=== PATIENT | male | born 1940 | race Caucasian/White ===

== ENCOUNTER 2025-04-16 18:27 | Inpatient (IN) | payer MEDICARE, OTHER ==
[~2025-04-16] VITALS: Ht 177.8 cm; Wt 74.2 kg
[~2025-04-16 18:27] MED LIST: EVOL140P3 SQ; IVER3TAB2 PO
[2025-04-16 18:42] VITALS: O2SAT 98
[2025-04-16] MEDS: IPRATROPIUM NEB FS 0.5 MG/2.5 ML AMPUL.NEB NEB ONE (18:43)
[2025-04-16] MEDS: ALBUTEROL FS 2.5 MG/3 ML VIAL.NEB NEB ONE (18:43)
[2025-04-16] MEDS ORDERED: ALBUTEROL FS 2.5 MG/3 ML VIAL.NEB ONE (18:44)
[2025-04-16] MEDS ORDERED: IPRATROPIUM NEB FS 0.5 MG/2.5 ML AMPUL.NEB ONE (18:44)
[2025-04-16 18:56] LABS: PLATELET COUNT (AUTO) 165 K/uL (150-450); RED BLOOD CELL COUNT(AUTO) 4.16 MIL/uL (4.5-6.0); RED CELL DISTRIBUTION WIDTH 14.9 % (11.5-15.0); WHITE BLOOD COUNT (AUTO) 8.6 K/uL (4.3-11.0)
[2025-04-16] MEDS: IV NS 0.9% 500 ML BAG IV ONE (18:57)
[2025-04-16] MEDS: CEFEPIME 1 GM in IV D5W 50 ML IV ONE (18:58)
[2025-04-16] MEDS ORDERED: ACET325T53 PO ×2 (19:04)
[2025-04-16] MEDS ORDERED: ASCO500T20 PO (19:04)
[2025-04-16] MEDS ORDERED: AZEL137S7 BNOSTRILS (19:04)
[2025-04-16] MEDS ORDERED: MONT10TA22 PO (19:04)
[2025-04-16] MEDS ORDERED: DIGO-30 PO (19:04)
[2025-04-16] MEDS ORDERED: DAPA10TA PO (19:04)
[2025-04-16] MEDS ORDERED: MAGN400O6 PO (19:04)
[2025-04-16] MEDS ORDERED: ZINC50TA69 PO (19:04)
[2025-04-16] MEDS ORDERED: DABI110C PO (19:04)
[2025-04-16] MEDS ORDERED: ACET-73 PO (19:04)
[2025-04-16] MEDS ORDERED: SILO8CAP6 PO (19:04)
[2025-04-16] MEDS ORDERED: LIDO30AD10 TP (19:04)
[2025-04-16] MEDS ORDERED: GLYC2TAB21 PO (19:04)
[2025-04-16] MEDS ORDERED: LINA145C PO (19:04)
[2025-04-16] MEDS ORDERED: BREZTRI IH (19:04)
[2025-04-16] MEDS ORDERED: MULT-213 PO (19:04)
[2025-04-16] MEDS ORDERED: ALBU18HF2 IH (19:04)
[2025-04-16] MEDS ORDERED: ATOR10TA GT (19:04)
[2025-04-16] MEDS ORDERED: DIVA125C2 PO (19:04)
[2025-04-16] MEDS ORDERED: FEBU40TA3 PO (19:04)
[2025-04-16] MEDS ORDERED: RISP0.5T5 PO (19:04)
[2025-04-16] MEDS ORDERED: NA P133E RC (19:04)
[2025-04-16] MEDS ORDERED: AMIN30LI66 PO (19:04)
[2025-04-16] MEDS ORDERED: RISP1TAB7 PO (19:04)
[2025-04-16 19:12] LABS: INR 1.01 (0.91-1.10)
[2025-04-16 19:17] LABS: LACTIC ACID 1.3 mmol/L (0.4-2.0)
[2025-04-16 19:22] LABS: CALCIUM, SERUM 8.8 mg/dL (8.5-10.1); CREATININE 1.0 mg/dL (0.6-1.3); SODIUM SERUM 141 mmol/L (136-145); UREA NITROGEN, BLOOD 23 mg/dL (7-18)
[2025-04-16 19:26] LABS: ASPARTATE AMINOTRANSFERASE 12 U/L (15-37); TOTAL PROTEIN, SERUM 7.6 g/dL (6.4-8.2)
[2025-04-16] MEDS: Magnesium 1GM/D5W 100ML PREMIX 200 ML IV ONE (19:41)
[2025-04-16 19:42] VITALS: O2SAT 100
[2025-04-16] MEDS: VANCOMYCIN 1 GM in IV D5W 250 ML IV ONE (20:00)
[2025-04-16] MEDS ORDERED: Magnesium 1GM/D5W 100ML PREMIX 100 ML IV ONE (20:02)
[2025-04-16 22:50] VITALS: BP 105/66; TEMP 97.8; O2SAT 97
[2025-04-16] MEDS ORDERED: ONDANSETRON HCL/PF 4 MG/2 ML VIAL IVP PRN (23:00)
[2025-04-16] MEDS ORDERED: ACETAMINOPHEN 325 MG TABLET PO PRN (23:00)
[2025-04-16 23:29] VITALS: O2SAT 98
[2025-04-16] MEDS: LEVALBUTEROL HCL NEB 1.25 MG/0.5 ML VIAL.NEB NEB SCH (23:29)
[2025-04-16] MEDS: IPRATROPIUM NEB FS 0.5 MG/2.5 ML AMPUL.NEB NEB SCH (23:29)
[2025-04-16 23:44] VITALS: O2SAT 100
[2025-04-16] MEDS: LEVOFLOXACIN (250MG) 250 MG TABLET PO SCH (23:53)
[2025-04-17] VITALS (17 sets, daily range): BP systolic 103–128; BP diastolic 68–81; TEMP 97.5–98.1; O2SAT 95–100
[2025-04-17 07:26] LABS: PLATELET COUNT (AUTO) 156 K/uL (150-450); RED BLOOD CELL COUNT(AUTO) 4.03 MIL/uL (4.5-6.0); RED CELL DISTRIBUTION WIDTH 15.1 % (11.5-15.0); WHITE BLOOD COUNT (AUTO) 3.7 K/uL (4.3-11.0)
[2025-04-17 07:53] LABS: CALCIUM, SERUM 8.8 mg/dL (8.5-10.1); CREATININE 1.0 mg/dL (0.6-1.3); PHOSPHORUS 4.3 mg/dL (2.5-4.9); SODIUM SERUM 141.0 mmol/L (136-145); UREA NITROGEN, BLOOD 21.0 mg/dL (7-18)
[2025-04-17] MEDS: PANTOPRAZOLE 40 MG TABLET.DR PO SCH (08:37)
[2025-04-17] MEDS: ZINC SULFATE 220 MG CAPSULE PO SCH (08:37)
[2025-04-17] MEDS: DIVALPROEX SODIUM 125 MG CAP.SPRINK PO SCH (08:38)
[2025-04-17] MEDS: ASCORBIC ACID 500 MG TABLET PO SCH (08:38)
[2025-04-17] MEDS: MULTIVIT W/MINERALS 1 TAB TABLET PO SCH (08:39)
[2025-04-17] MEDS: MONTELUKAST SODIUM (10MG) 10 MG TABLET PO SCH (08:39)
[2025-04-17] MEDS: DIGOXIN 0.125 MG TABLET PO SCH (08:39)
[2025-04-17] MEDS: PROSOURCE / PROSTAT (PYXIS) 30 ML UDC PO SCH (08:41)
[2025-04-17] MEDS: DAPAGLIFLOZIN PROPANEDIOL 10 MG TABLET PO SCH (08:41)
[2025-04-17] MEDS ORDERED: Medication Not On Formulary EA (Febuxostat 40 MG) PO SCH (09:00)
[2025-04-17] MEDS: ATORVASTATIN 10 MG TABLET GT SCH (21:33)
[2025-04-18] VITALS (19 sets, daily range): BP systolic 111–130; BP diastolic 66–82; TEMP 97.2–98.1; O2SAT 95–100
[2025-04-18] MEDS: HOME MED MISCELLANEOUS (SILODOSIN 8MG CAP) PO SCH (06:32)
[2025-04-18 07:11] LABS: CALCIUM, SERUM 8.8 mg/dL (8.5-10.1); CREATININE 0.9 mg/dL (0.6-1.3); SODIUM SERUM 144.0 mmol/L (136-145); UREA NITROGEN, BLOOD 24.0 mg/dL (7-18)
[2025-04-18] MEDS: Z GUARD REMEDY 4 OZ OINT TP PRN (08:28)
[2025-04-19] VITALS (14 sets, daily range): BP systolic 115–123; BP diastolic 84–86; TEMP 97.5–97.9; O2SAT 92–99
[2025-04-19 11:30] LABS: ABG BASE EXCESS 3.9 mmol/L (-2.0-3.0); ABG OXYGEN SATURATION 94.4 % (94.0-98.0); ABG PCO2 39.7 mmHg (35.0-48.0); ABG PH 7.464 (7.350-7.450); ABG PO2 75.4 mmHg (83.0-108.0); ABG TOTAL HEMOGLOBIN 12.6 G/dL (13.5-17.5); FLOW, BLOOD GAS 2.00 L/min (0.00-30.00); FRACTIONATED INSPIRED OXYGEN 28.0 %; SITE, ABG RIGHT RADIAL
[2025-04-19] MEDS: MAGNESIUM HYDROXIDE 30 ML UDC PO PRN (21:56)
[2025-04-20 03:02] VITALS: O2SAT 93
[2025-04-20 03:17] VITALS: O2SAT 99
[2025-04-20 08:00] VITALS: BP 97/75; TEMP 97.5; O2SAT 99
[2025-04-20 08:15] VITALS: O2SAT 99
[2025-04-20 08:30] VITALS: O2SAT 99
[2025-04-21] MEDS ORDERED: IVERMECTIN 3 MG TABLET PO SCH (09:00)
== END 2025-04-20 12:20 | DRG 190 ==
LOC: ER 18:39 → TELE 22:19 → MED 04-18 11:29
PROVIDERS: ADMIT Nurse Practitioner Family; ATTEND Internal Medicine
DX: J44.1 Chronic obstructive pulmonary disease with (acute) exacerbation (principal); G93.41 Metabolic encephalopathy; J96.01 Acute respiratory failure with hypoxia; J69.0 Pneumonitis due to inhalation of food and vomit; E44.1 Mild protein-calorie malnutrition; L89.156 Pressure-induced deep tissue damage of sacral region; J44.0 Chronic obstructive pulmonary disease with (acute) lower respiratory infection; F03.C0 Unspecified dementia, severe, without behavioral disturbance, psychotic disturbance, mood disturbance, and anxiety; I50.32 Chronic diastolic (congestive) heart failure; D63.8 Anemia in other chronic diseases classified elsewhere; F29 Unspecified psychosis not due to a substance or known physiological condition; I11.0 Hypertensive heart disease with heart failure; I48.20 Chronic atrial fibrillation, unspecified; E78.5 Hyperlipidemia, unspecified; Z79.84 Long term (current) use of oral hypoglycemic drugs; R53.1 Weakness; J20.9 Acute bronchitis, unspecified; Z95.0 Presence of cardiac pacemaker; E88.09 Other disorders of plasma-protein metabolism, not elsewhere classified; S50.312A Abrasion of left elbow, initial encounter; X58.XXXA Exposure to other specified factors, initial encounter; Y93.9 Activity, unspecified; Y92.009 Unspecified place in unspecified non-institutional (private) residence as the place of occurrence of the external cause; L98.8 Other specified disorders of the skin and subcutaneous tissue
CPT/HCPCS: 31720; 36415; 36600; 70450-TC; 71045-TC; 80048-TC; 80076-TC; 82803-TC; 82962-TC; 83605-TC; 83735-TC; 83880; 84100-TC; 84484-TC; 85025-TC; 85730-TC; 87040-TC; 87081-TC; 94760-TC; 94799-TC; 97112-TC; 97116-TC; 97530-TC; 97535-TC; A4223; G0378; J0692; J2919; J3373; J3475; J7040; J7050; J7060